=== PATIENT | female | born 1955 | race African-American/Black ===

== ENCOUNTER 2017-01-28 21:53 | Emergency (ER) | payer MEDICARE, OTHER ==
--- NOTE | ~2017-01-28 | NM69 ---
[facility] A Service of [facility] RADIOLOGY TEXT RESULTS PATIENT: ELISABETH SANTACRUZ LOCATION: [facility] : 53 UNIT #: [id number] AGE: [address]: La William MD SEX: F ORDER DR: [id number] [facility] [address] [place], [place] [address] [id number] E MR#: [id number] Acc #: [id number] NAME: ELISABETH SANTACRUZ : 1955 SEX: F STUDY DATE/TIME: 01/28/2017 23:24 UNIT: [facility] ROOM: STUDY DESCRIPTION: EMMANUELLE Pulm Vent and Perf Attending Physician: La William M.D. Ordering Physician: La William M.D. Primary Care Physician: Primary Care Physician No MEDICAL IMAGING REPORT This report is preliminary unless electronic signature is present EXAM VQ scan, 01/28/2017 INDICATION Chest pain, positive D-dimer. Pain with breathing. Symptoms began this morning. Asthma. Tobacco abuse intermittently 5 years. Hypertension. TECHNIQUE Following the uneventful aerosolization of 35.2 mCi technetium 99m DTPA, ventilatory images of the lungs were obtained in various projections. Thereafter following the uneventful intravenous administration of 6 mCi technetium 99m MAA, corresponding perfusion images were obtained. COMPARISON Chest x-ray, 01/28/2017 FINDINGS Perfusion images are equal to or better than ventilatory images in all projections. No large segmental VQ mismatch is identified. The examination is low probability for acute pulmonary embolus by PIOPED criteria. IMPRESSION Low probability study for acute pulmonary embolus by PIOPED criteria. Dictated by... Wilfred Patten M.D. THIS IS AN ELECTRONICALLY VERIFIED REPORT Wilfred Patten M.D. at 01/29/2017 10:01 PM Alexandra TD: 01/29/2017 10:15 [facility] A Service of [facility] RADIOLOGY TEXT RESULTS PATIENT: ELISABETH SANTACRUZ LOCATION: [facility] : 53 UNIT #: [id number] AGE: [address]: La William MD SEX: F ORDER DR: JOB #: [id number] MEDICAL IMAGING REPORT Page 1 of 1 COPY
--- NOTE | ~2017-01-28 | EKG ---
PATIENT: ELISABETH SANTACRUZ UNIT #: [id number] Ventricular Rate: 88 BPM Atrial Rate: 88 BPM P-R Interval: 180 ms QRS Duration: 64 ms Q-T Interval: 372 ms QTC Calculation(Bezet): 450 ms P [place]: 79 degrees Calculated R [place]: 75 degrees Calculated T [place]: 66 degrees Diagnosis Line: Normal sinus rhythm Diagnosis Line: Normal ECG Diagnosis Line: No previous ECGs available Diagnosis Line: Confirmed by NILSON HARTMNA MD ([id number]) on 01/29/2017 Diagnosis Line: 10:59:49 PM INTERPRETING MD: DEVAN SUAREZ
--- NOTE | ~2017-01-28 | CR72 ---
[facility] A Service of [facility] RADIOLOGY TEXT RESULTS PATIENT: ELISABETH SANTACRUZ LOCATION: [facility] : 54 UNIT #: [id number] AGE: [address]: La William MD SEX: F ORDER DR: [id number] [facility] [address] [place], [place] [address] [id number] E MR#: [id number] Acc #: [id number] NAME: ELISABETH SANTACRUZ : 1955 SEX: F STUDY DATE/TIME: 01/28/2017 21:30 UNIT: [facility] ROOM: STUDY DESCRIPTION: CR Chest Single View Portable Attending Physician: La William M.D. Ordering Physician: La William M.D. Primary Care Physician: No Primary Care Physician MEDICAL IMAGING REPORT This report is preliminary unless electronic signature is present EXAM Portable chest. HISTORY 61-year-old female with midsternal chest pain. Cough. Onset this morning. COMPARISON STUDIES 10/03/2011 FINDINGS A single AP portable view of the chest shows both lungs to be clear. The heart is normal in size. The mediastinal contour is normal. No significant bone abnormalities are seen. IMPRESSION Normal portable chest. Dictated by... Yumiko Hutson M.D. THIS IS AN ELECTRONICALLY VERIFIED REPORT Yumiko Hutson M.D. at 01/29/2017 10:06 AM JOSHUA/sukhdeep TD: 01/29/2017 09:52 JOB #: [id number] MEDICAL IMAGING REPORT Page 1 of 1 COPY
[2017-01-28 18:41] LABS: BASOPHIL# 0.1 X10e3 (0-0.3); BASOPHIL% 0.9 % (0-2.5); EOSINOPHIL# 0.1 X10e3 (0-0.7); EOSINOPHIL% 1.2 % (0.0-7.0); HEMATOCRIT 37.5 % (35.0-45.0); LYMPHOCYTE# 2.3 X10e3 (1.0-3.5); MEAN CELL VOLUME 85.5 FL (83-96); MEAN CORPUSCULAR HEMOGLOBIN 29.6 PG (28-34); MEAN CORPUSCULAR HGB CONC 34.7 g/dL (30-36); MEAN PLATELET VOLUME 7.2 FL (6.5-11.5); MONOCYTE# 0.5 X10e3 (0-1.0); MONOCYTE% 6.3 % (3.0-12.0); NEUTROPHIL# 4.8 X10e3 (1.5-7.1); NEUTROPHIL% 61.6 % (40-75); PLATELET COUNT 223 X10e3 (140-420); RED BLOOD COUNT 4.39 X10e (3.90-5.30); RED CELL DISTRIBUTION WIDTH 13.2 % (11.0-15.5); WHITE BLOOD COUNT 7.8 X10e3 (4.0-10.5)
[2017-01-28 18:42] LABS: DIFF IND NO
[2017-01-28 19:05] LABS: ALBUMIN SERUM 4.1 g/dL (3.5-5.0); BILIRUBIN, DIRECT 0.1 mg/dL (0.0-0.2); BILIRUBIN,INDIRECT 0.4 mg/dL (0.0-0.9); BILIRUBIN,TOTAL 0.5 mg/dL (0.2-2.0); BUN/CREATININE RATIO 13.07; CALCIUM SERUM 9.3 mg/dL (8.4-10.2); CREATININE SERUM 1.3 mg/dL (0.6-1.4); GLOM FILT RATE Estimated 43.9 mL/min (>60); POTASSIUM 3.3 mmol/L (3.5-5.1); PROTEIN TOTAL SERUM 7.3 g/dL (6.0-8.3)
[2017-01-28 21:46] LABS: POC - CKMB <1.0 ng/mL (0.0-7.9); POC - TROPONIN <0.05 ng/mL (<=0.05)
[2017-01-28 22:13] LABS: URINE SOURCE CLEAN CATCH
[2017-01-28 22:18] LABS: URINE APPEARANCE CLOUDY; URINE BILIRUBIN NEG (NEG); URINE BLOOD NEG (NEG); URINE COLOR YELLOW; URINE GLUCOSE NEG (NEG); URINE KETONE NEG (NEG); URINE LEUKOCYTE ESTERASE 3+ (NEG); URINE NITRATE NEG (NEG); URINE PROTEIN NEG (NEG); URINE SPECIFIC GRAVITY 1.014 (1.003-1.035)
[2017-01-28 22:19] LABS: CULTURE INDICATED? YES; URINE BACTERIA AUWI 2+ (NEGATIVE); URINE SQUAMOUS EPITHELIAL CELL MOD /[HPF]; UWBCS1 AUWI 25-50 (0-5)
[2017-01-28 22:30] LABS: INFLUENZA A NEG (NEG); INFLUENZA B NEG (NEG)
[2017-01-28 22:31] LABS: POC - CKMB <1.0 ng/mL (0.0-7.9); POC - TROPONIN <0.05 ng/mL (<=0.05)
== END 2017-01-29 01:00 | disposition home or self-care (01) ==
LOC: CED 21:53
PROVIDERS: Student in an Organized Health Care Education/Training Program
DX: R09.1 Pleurisy (principal); R05 Cough; I10 Essential (primary) hypertension; J45.909 Unspecified asthma, uncomplicated
CPT/HCPCS: 36415; 71010; 78582; 80048; 80076; 81003; 82553; 84484; 85025; 85379; 87086; 87804; 93005; 94640; 99284; A9540; A9567

== ENCOUNTER → 2017-03-27 | Outpatient (CLI) | payer MEDICARE, OTHER ==
--- NOTE | ~2017-03-27 | MY11 ---
[facility] A Service of [facility] RADIOLOGY TEXT RESULTS PATIENT: ELISABETH SANTACRUZ LOCATION: [facility] : 53 UNIT #: [id number] AGE: [address]: DELMER VILLAVICENCIO SEX: F ORDER DR: [id number] [facility] [address] [place], [place] [address] [id number] O MR#: [id number] Acc #: [id number] NAME: ELISABETH SANTACRUZ : 1955 SEX: F STUDY DATE/TIME: 03/27/2017 15:29 UNIT: [facility] ROOM: STUDY DESCRIPTION: MY Mammogram Screening Dig Willie Attending Physician: Delmer Villavicencio Aprn Referring Physician: Delmer Villavicencio Aprn Ordering Physician: Delmer Villavicencio Aprn Primary Care Physician: Delmer Villavicencio Aprn MEDICAL IMAGING REPORT This report is preliminary unless electronic signature is present EXAM Bilateral screening mammogram 03/27 INDICATIONS 61 year old with no personal or family of breast cancer. No current complaints. FINDINGS Routine digital screening views of both breasts were obtained. Study reviewed with a FDA-approved CAD device. COMPARISON STUDIES 11/04/2013, 10/14/2012. FINDINGS Breast parenchyma demonstrates scattered fibroglandular densities. No new masses or suspicious microcalcifications are seen. Intramammary lymph nodes in the upper right breast are unchanged. IMPRESSION Benign mammogram. Routine screen in 1 year recommended. BIRADS: 2 Benign Finding. Patients over the age of 40 are entered into a reminder system with target due date for the next mammogram. A result letter will also be sent to the patient. Dictated by... Derick Oro Jr., M.D. [facility] A Service of [facility] RADIOLOGY TEXT RESULTS PATIENT: ELSIABETH SANTACRUZ LOCATION: [facility] : 53 UNIT #: [id number] AGE: [address]: DELMER VILLAVICENCIO SEX: F ORDER DR: THIS IS AN ELECTRONICALLY VERIFIED REPORT Derick Oro Jr., M.D. at 03/28/2017 10:17 AM TIKA/vince TD: 03/27/2017 21:34 JOB #: [id number] MEDICAL IMAGING REPORT Page 1 of 1 COPY
== END | disposition home or self-care (01) ==
LOC: CWCC 14:42
DX: Z12.31 Encounter for screening mammogram for malignant neoplasm of breast (principal)
CPT/HCPCS: G0202